=== PATIENT | male | born 1950 | race Caucasian/White ===

== ENCOUNTER → 2016-11-11 | Day surgery (SDC) | payer BC ==
[2016-11-10 07:55] VITALS: BMI 23.0
[~2016-11-11] VITALS: Ht 188 cm; Wt 81.8 kg
[~2016-11-11] MED LIST: ACET-1256 PO; ASPI81TA82 PO; Amoxicillin PO; BUPR-79 PO; CHOL1TAB46 PO; CYCL100C3 PO; CYCL25CA5 PO; EpHEDrine SULFATE INJ 50 MG/ML AMP ONE; FENTANYL CITRATE INJ 50 MCG/1 ML 2 ML VIAL ONE; LEVO75TA PO; LIDOCAINE HCL 2% 2 ML VIAL (20MG/ML) ONE; LORA0.5T12 PO; LPR25 PO; MESA1.2T PO; METHYLENE BLUE 0.5% 10 ML VIAL ONE; MIRT15TA53 PO; MISCCAP80 PO; MYCO360T PO; NXM/40 PO; ONDA4TAB10 PO; ONDANSETRON INJ 2 MG/ML 2 ML VIAL ONE; PRAV20TA PO; PROM25TA16 PO; PROPOFOL IV EMULSION 10 MG/ML 20 ML VIAL IV ONE; SERT50TA PO; SODIUM CHLORIDE 0.9% 500ML 500 ML IV ONE; TAMS0.4C59 PO
[2016-11-11 08:25] VITALS: Ht 188 cm; Wt 81.8 kg
--- NOTE | 2016-11-11 08:48 | Endo History and Physical ---
History & Physical Date of Service: Nov 11, 2016. Chief Complaint: hx of ulcerative colitis Referring Physician: Dr. Soria History of Present Illness h/o uc, dysplasia surveillance Past Medical History Liver Disease Past Surgical History Hx Cardiac Surgery: Yes (CARDIAC ABLATION) Hx Internal Defibrillator: No Hx Pacemaker: No Hx Abdominal Surgery: Yes (LIVER TRANSPLANT, LAP CHOLEY AND LIVER BIOPSY) Hx of Implantable Prosthesis: No Hx Post-Op Nausea and Vomiting: Yes (EXTREME NAUSEA AFTER COLONOSCOPIES) Hx Cancer Surgery: No Hx Thoracic Surgery: No Hx Orthopedic: No Hx Urinary Tract Surgery: No Family History IBD Social History Smoking Status: Never Smoker Hx Substance Use: No Hx Alcohol Use: No Allergies Coded Allergies: Escitalopram (Verified Allergy, Intermediate, HIVES, 11/11/16) Adhesives (Verified Adverse Reaction, Mild, RASH, 11/11/16) Codeine (Verified Adverse Reaction, Mild, NAUSEA, 11/11/16) Fentanyl (Verified Adverse Reaction, Mild, NAUSEA, 11/11/16) Morphine (Verified Adverse Reaction, Mild, NAUSEA, 11/11/16) Current Medications Reported Home Medications Medications Dose Route/Sig Max Daily Dose Days Date Category Dose Instructions Myfortic (Mycophenolate Sodium) 360 Mg Tab 1 Tab PO BID 11/10/16 Reported Zoloft (Sertraline HCl) 50 Mg Tab 50 Mg PO QPM 11/10/16 Reported Pravachol (Pravastatin Sodium) 20 Mg Tab 20 Mg PO QPM 11/10/16 Reported Lialda (Mesalamine) 1.2 Gm Tab 2 Tab PO QAM 90 11/10/16 Reported Neoral (Cyclosporine) 25 Mg Cap 3 Tab PO QPM 02/09/16 Reported Wellbutrin Sr (Bupropion HCl) 150 Mg Ertab 150 Mg PO BID 11/06/15 Reported Vitamin D3 (Cholecalciferol) 5,000 Unit Tab 1 Tab PO QAM 11/06/15 Reported Synthroid (Levothyroxine Sodium) 75 Mcg Tab 75 Mcg PO QAM 11/06/15 Reported Probiotic (Probiotic Product) 1 Cap Cap 1 Cap PO BID 11/06/15 Reported Nexium (Esomeprazole Magnesium) 40 Mg Capcr 40 Mg PO QAM 11/06/15 Reported Lorazepam 0.5 Mg Tab 1 Tab PO 12-24 HRS PRN 11/18/14 Reported Promethazine HCl 25 Mg Tab 25 Mg PO UD PRN 11/18/14 Reported Mirtazapine 15 Mg Tab 1 Tab PO QPM 11/18/14 Reported Lopressor (Metoprolol Tartrate) 25 Mg Tab 25 Mg PO BID 30 07/15/12 Rx Zofran Odt (Ondansetron HCl) 4 Mg Tab 4 Mg PO PRN/UD 07/13/12 Reported [Amoxicillin] 1 Dose PO PRN/UD 07/13/12 Reported UNKNOWN STRENGTH, TAKE THIS MEDICATION ONE HOUR PRIOR TO DENTAL PROCEDURE. Tylenol (Acetaminophen) 500 Mg Tab 500 Mg PO PRN/UD 07/13/12 Reported MAX 2000 MG APAP/DAY. Flomax (Tamsulosin Hcl) 0.4 Mg Cap 0.4 Mg PO Q2D 07/13/12 Reported Cyclosporine 100 Mg Cap 1 Tab PO QAM 07/13/12 Reported Aspirin 81 Mg Tab 81 Mg PO QAM 07/13/12 Reported Vital Signs Weight (Kilograms): 81.82 Height (Feet): 6 Height (Inches): 2 Date Time Temp Pulse Resp B/P (MAP) Pulse Ox O2 Delivery O2 Flow Rate FiO2 11/11/16 08:34 36 52 18 130/77 (94) 96 Room Air Physical Exam General Appearance: no apparent distress Respiratory/Chest: Auscultation: breath sounds normal Cardiovascular: Heart Auscultation: RRR Abdomen: Bowel Sounds: normal Assessment and Plan UC surveillance, n/v - cscopy + EGD
--- NOTE | 2016-11-11 10:10 | GI REPORT ---
Procedure Date: 11/11/2016 8:22 AM Procedure: Upper GI endoscopy Indications: Nausea with vomiting Medicines: See the Anesthesia note for documentation of the administered medications Complications: No immediate complications. Estimated Blood Loss: Estimated blood loss: none. Procedure: Pre-Anesthesia Assessment: - ASA Grade Assessment: III - A patient with severe systemic disease. After obtaining informed consent, the endoscope was passed under direct vision. Throughout the procedure, the patient's blood pressure, pulse, and oxygen saturations were monitored continuously. The scope was introduced through the mouth, and advanced to the second part of duodenum. The upper GI endoscopy was accomplished without difficulty. The patient tolerated the procedure well. Findings: The examined esophagus was normal. The entire examined stomach was normal. Biopsies were taken with a cold forceps for histology. The examined duodenum was normal. Biopsies were taken with a cold forceps for histology. Impression: - Normal esophagus. - Normal stomach. Biopsied. - Normal examined duodenum. Biopsied. Recommendation: - Discharge patient to home. Harsh Koehler M.D. Harsh Koehler MD 11/11/2016 10:09:12 AM This report has been signed electronically. Note Initiated On: 11/11/2016 8:22 AM I attest to the content of the Intraoperative Record and orders documented therein, exceptions below
--- NOTE | 2016-11-11 10:15 | GI REPORT ---
Procedure Date: 11/11/2016 9:14 AM Procedure: Colonoscopy Indications: Last colonoscopy: January 2016, Follow-up of ulcerative colitis; prior bx indef for dysplasia Medicines: See the Anesthesia note for documentation of the administered medications Complications: No immediate complications. Estimated Blood Loss: Estimated blood loss: none. Procedure: Pre-Anesthesia Assessment: - ASA Grade Assessment: III - A patient with severe systemic disease. After I obtained informed consent, the scope was passed under direct vision. Throughout the procedure, the patient's blood pressure, pulse, and oxygen saturations were monitored continuously. The Scope was introduced through the anus and advanced to the terminal ileum. The colonoscopy was performed without difficulty. The patient tolerated the procedure well. The quality of the bowel preparation was good. Findings: The perianal and digital rectal examinations were normal. There was no evidence of active colitis in the colo. There was mild loss of haustral folds and vascular markings, and mucosal bridging at the hepatic flexure. There was a 1 mm polyp in the ascending colon removed by a biopsy forceps. There was a 1 mm polyp in the transverse colon removed by biopsy forceps. There was 4 mm polyp in the transverse colon removed with hot snare-saline lift. The ileum was normal. Biopsies taken every 10 cm in four quadrants. Chromoendoscopy was also performed, using methylene blue in the lavage solution. Recommendation: - Discharge patient to home. Harsh Koehler M.D. Harsh Koehler MD 11/11/2016 10:14:37 AM This report has been signed electronically. Note Initiated On: 11/11/2016 9:14 AM I attest to the content of the Intraoperative Record and orders documented therein, exceptions below
--- NOTE | 2016-11-11 10:36 | Discharge Instructions ---
Endoscopy Patient Instructions Date / Procedure(s) Performed Nov 11, 2016. Colonoscopy, EGD Allergy Information Coded Allergies: Escitalopram (Verified Allergy, Intermediate, HIVES, 11/11/16) Adhesives (Verified Adverse Reaction, Mild, RASH, 11/11/16) Codeine (Verified Adverse Reaction, Mild, NAUSEA, 11/11/16) Fentanyl (Verified Adverse Reaction, Mild, NAUSEA, 11/11/16) Morphine (Verified Adverse Reaction, Mild, NAUSEA, 11/11/16) Discharge Date / Findings Nov 11, 2016. Colon polyps; no evidence of active colitis Provider Instructions Activity Restrictions - No exercising or heavy lifting for 24 hours. - Do not drink alcohol the day of the procedure. - Do not drive a car or operate machinery until the day after the procedure. - Do not make any important decisions or sign important papers in 24 hours after the procedure. Following Day: - Return to full activity which may include returning to work/school. Diet Start your diet with liquids and light foods (jello, soup, juice, toast). Then eat your usual diet if not nauseated. Treatment For Common After Affects For mild abdominal pain, bloating, or excessive gas: - Rest - Eat lightly - Lie on right side Follow-Up Information Follow-up with Dr. Soria as scheduled Anesthesia Information What You Should Know You have had a procedure that required some medicine to reduce anxiety and discomfort. This treatment is called moderate sedation. After receiving the treatment, you may be sleepy, but you will be able to breathe on your own. The effects of the treatment may last for several hours. Follow these instructions along with Activity/Diet recommendations noted above: * Do NOT do anything where dizziness or clumsiness would be dangerous. * Rest quietly at home today, then you can be up and about tomorrow. * Have a responsible person stay with you the rest of today. * You may have had an I.V. today. If so, you may take the dressing off later today. Recommendations Call your doctor if: * Trouble breathing * Continuous vomiting for more than 24 hours * Temperature above 101 degrees * Severe abdominal pain or bloating * Pain not relieved by pain medicine ordered * There is increased drainage or redness from any incision * A large amount of rectal bleeding greater than 2-3 tablespoons. (If you had a polyp/s removed or have hemorrhoids, a small amount of blood - from the rectum is to be expected.) * You have any unanswered questions or concerns. IN THE EVENT OF A SERIOUS EMERGENCY, GO TO THE NEAREST EMERGENCY ROOM Your discharge instructions were prepared by provider Harsh Cloud. Patient Instructions Signature Page Jose Quinonez Patient (or Guardian) Signature/Date: I have read and understand the instructions given to me by my caregivers. Caregiver/RN/Doctor Signature/Date: The above-named patient and/or guardian has received patient instructions on this date. + Original Patient Signature Page (only) stays with chart. Please make copy for patient.
[2016-11-11 10:40] VITALS: BP 134/74; PULSE 50; O2SAT 99
--- NOTE | 2016-11-11 11:01 | Anesthesiology Progress Note ---
Anesthesia Post Op Note Date & Time Nov 11, 2016 at 11:01 Vital Signs Pain Intensity: 0 Vital Signs Past 12 Hours Date Time Temp Pulse Resp B/P (MAP) Pulse Ox O2 Delivery O2 Flow Rate FiO2 11/11/16 10:40 50 20 134/74 (94) 99 Room Air 11/11/16 10:23 52 20 136/72 (93) 100 Room Air 11/11/16 10:08 53 10 138/72 (94) 99 Room Air 11/11/16 08:34 36 52 18 130/77 (94) 96 Room Air Notes Mental Status: alert / awake / arousable, participated in evaluation Pt Amnestic to Procedure: Yes Nausea / Vomiting: adequately controlled Pain: adequately controlled Airway Patency, RR, SpO2: stable & adequate BP & HR: stable & adequate Hydration State: stable & adequate Anesthetic Complications: no major complications apparent
== END | disposition home or self-care (01) ==
LOC: C.GI 08:05
PROVIDERS: ATTEND Internal Medicine Gastroenterology
DX: D12.2 Benign neoplasm of ascending colon (principal); D12.3 Benign neoplasm of transverse colon; K52.9 Noninfective gastroenteritis and colitis, unspecified; Z79.899 Other long term (current) drug therapy